=== PATIENT | male | born 1980 | race Caucasian/White ===

== ENCOUNTER 2019-03-14 10:10 | Emergency (ER) | payer SELFPAY ==
[2019-03-14] MEDS ORDERED: ASPIRIN 81 MG TABLET, CHEWABLE PO ONE (11:32)
--- NOTE | 2019-03-14 11:33 | ER Document Report ---
ED Medical Screen (RME) - General Chief Complaint: Chest Pain Stated Complaint: CHEST PAIN Time Seen by Provider: 03/14/19 11:29 Primary Care Provider: SAADIA GANT [Primary Care Provider] - Follow up as needed Mode of Arrival: Ambulatory Information source: Patient Notes: This 38-year-old male with no previous history presents emergency department with complaints of sharp chest pain to the center of his chest that started approximately 2 hours ago while he was sitting at his desk. Reports increased pain when he moves. Reports he feels little bit short of breath and lightheaded. Denies nausea denies diaphoresis. No known family history of cardiac disease. I have greeted and performed a rapid initial assessment of this patient. A comprehensive ED assessment and evaluation of the patient, analysis of test results and completion of the medical decision making process will be conducted by additional ED providers. Physical Exam - Vital signs Vitals: Temp Pulse Resp BP Pulse Ox 98.3 F 65 18 176/89 H 96 03/14/19 10:26 03/14/19 10:26 03/14/19 10:26 03/14/19 10:26 03/14/19 10:26 Course - Vital Signs Vital signs: Temp Pulse Resp BP Pulse Ox 98.3 F 65 18 176/89 H 96 03/14/19 10:26 03/14/19 10:26 03/14/19 10:26 03/14/19 10:26 03/14/19 10:26 Doctor's Discharge - Discharge Referrals: SAADIA GANT [Primary Care Provider] - Follow up as needed
[2019-03-14 12:17] LABS: ABSOLUTE BASOPHILS # (AUTO) 0.1 10^3/uL (0.0-0.2); ABSOLUTE EOSINOPHILS # (AUTO) 0.2 10^3/uL (0.0-0.6); ABSOLUTE LYMPHOCYTES (AUTO) 2.2 10^3/uL (0.5-4.7); ABSOLUTE MONOCYTES (AUTO) 0.6 10^3/uL (0.1-1.4); MEAN CORPUSCULAR HGB CONC 33.7 g/dL (32.0-36.0); TOTAL CELLS COUNTED % (AUTO) 100 %
[2019-03-14 12:27] LABS: ABSOLUTE NEUT (AUTO) 4.6 10^3/uL (1.7-8.2); BASOPHILS % (AUTO) 0.7 % (0-2); EOSINOPHILS % (AUTO) 2.6 % (0-6); HEMATOCRIT 47.4 % (37.9-51.0); LYMPHOCYTES % (AUTO) 28.1 % (13-45); MEAN CORPUSCULAR HEMOGLOBIN 31.6 pg (27.0-33.4); MEAN CORPUSCULAR VOLUME 94 fl (80-97); PLATELET COUNT 204 10^3/uL (150-450); RED BLOOD COUNT 5.06 10^6/uL (4.35-5.55); RED CELL DISTRIBUTION WIDTH 14.3 % (11.5-14.0); SEGMENTED NEUTROPHILS % (AUTO) 60.6 % (42-78); WHITE BLOOD COUNT 7.7 10^3/uL (4.0-10.5)
[2019-03-14 12:32] LABS: ALBUMIN 4.3 g/dL (3.5-5.0); ALKALINE PHOSPHATASE 75 U/L (38-126); ANION GAP 12 (5-19); ASPARTATE AMINO TRANSFERASE 27 U/L (17-59); BILIRUBIN,DIRECT 0.2 mg/dL (0.0-0.4); BILIRUBIN,TOTAL 0.4 mg/dL (0.2-1.3); BLOOD UREA NITROGEN 12 mg/dL (7-20); CALCIUM 9.6 mg/dL (8.4-10.2); CARBON DIOXIDE 23 mmol/L (22-30); CHLORIDE 108 mmol/L (98-107); CREATINE KINASE 130 U/L (55-170); GLUCOSE 95 mg/dL (75-110); POTASSIUM 4.4 mmol/L (3.6-5.0); TOTAL PROTEIN 7.3 g/dL (6.3-8.2)
--- NOTE | 2019-03-14 12:47 | RADIOLOGY REPORT (SQ) ---
EXAM DESCRIPTION: CHEST 2 VIEWS COMPLETED DATE/TIME: 03/14/2019 12:36 pm REASON FOR STUDY: cp COMPARISON: None. EXAM PARAMETERS: NUMBER OF VIEWS: two views TECHNIQUE: Digital Frontal and Lateral radiographic views of the chest acquired. RADIATION DOSE: NA LIMITATIONS: none FINDINGS: LUNGS AND PLEURA: Mild ill-defined right basilar opacity seen best on the lateral project ion. No pleural effusion or pneumothorax. MEDIASTINUM AND HILAR STRUCTURES: No masses or contour abnormalities. HEART AND VASCULAR STRUCTURES: Heart normal size. No evidence for failure. BONES: No acute findings. HARDWARE: None in the chest. OTHER: No other significant finding. IMPRESSION: Mild ill-defined right basilar opacities, possibly pneumonia. TECHNICAL DOCUMENTATION: JOB ID: [id number] [employer]domain- All Rights Reserved Reading location - IP/workstation name: [email or web address]
[2019-03-14] MEDS ORDERED: ASPIRIN 81 MG TABLET, CHEWABLE ONE (14:04)
[2019-03-14 15:25] VITALS: BP 135/84
--- NOTE | 2019-03-14 16:22 | EKG REPORT ---
SEVERITY:- NORMAL ECG - SINUS RHYTHM : Confirmed by: Johana Elkins MD 14-Mar-2019 16:21:29
--- NOTE | 2019-03-14 16:49 | ER Document Report ---
ED Cardiac - General Chief Complaint: Chest Pain Stated Complaint: CHEST PAIN Time Seen by Provider: 03/14/19 11:29 Primary Care Provider: SAADIA GANT [NO LOCAL MD] - Follow up as needed Mode of Arrival: Ambulatory Notes: 38-year-old male presents for sharp substernal pain that started while he was at work that lasted approximately 3 hours. Patient had associated dyspnea, lightheadedness, numbness to fingertips, and generalized weakness. Patient states moving his arms made the pain worse and rest made it better. Patient is currently symptom-free. Patient's only risk factor is smoking. Patient denies any history of hypertension, hyperlipidemia, diabetes. Patient denies any family history of cardiac disease. Patient was given aspirin 324 mg in triage. TRAVEL OUTSIDE OF THE [place] IN LAST 30 DAYS: No - Related Data Allergies/Adverse Reactions: No Known Allergies Allergy (Verified 03/14/19 14:14) Past Medical History - General Information source: Patient - Social History Smoking Status: Current Every Day Smoker Chew tobacco use (# tins/day): No Frequency of alcohol use: None Drug Abuse: None Family History: None Patient has suicidal ideation: No Patient has homicidal ideation: No Review of Systems - Review of Systems Notes: Constitutional: Negative for fever. HENT: Negative for sore throat. Eyes: Negative for visual changes. Cardiovascular: Positive for chest pain. Respiratory: Positive for shortness of breath. Gastrointestinal: Negative for abdominal pain, vomiting or diarrhea. Genitourinary: Negative for dysuria. Musculoskeletal: Negative for back pain. Skin: Negative for rash. Neurological: Positive for generalized weakness. Negative for headaches, weakness or numbness. 10 point ROS negative except as marked above and in HPI. Physical Exam - Vital signs Vitals: Temp Pulse Resp BP Pulse Ox 98.3 F 65 18 176/89 H 96 03/14/19 10:26 03/14/19 10:26 03/14/19 10:26 03/14/19 10:26 03/14/19 10:26 - Notes Notes: GENERAL: Well-appearing, well-nourished and in no acute distress. HEAD: Atraumatic, normocephalic. EYES: Extraocular movements intact, sclera anicteric, conjunctiva are normal. NECK: Normal range of motion, supple without lymphadenopathy or JVD. LUNGS: Breath sounds clear to auscultation bilaterally and equal. No wheezes rales or rhonchi. HEART: Regular rate and rhythm without murmurs, rubs or gallops. EXTREMITIES: Normal range of motion, no pitting or edema. No clubbing or cyanosis. NEUROLOGICAL: Cranial nerves II through XII grossly intact. Normal speech, normal gait. PSYCH: Normal mood, normal affect. SKIN: Warm, Dry, normal turgor, no rashes or lesions noted. Course - Re-evaluation Re-evalutation: 03/14/19 Presentation of chest pain in an otherwise well appearing patient. Low clinical suspicion for ACS given clinical history, exam, EKG without ST elevations or depressions, and negative initial troponin. HEART score 1. PE also seems unlikely given clinical history, absence of tachycardia or dyspnea. Patient is PERC criteria negative. CXR without evidence of pneumothorax or pneumonia. No widened mediastinum. Aortic dissection also seems unlikely given history, symmetric pulses, CXR, and vitals. HEART Score:1 Chest pain in a patient without evidence of cardiac or other serious etiology on workup today. I discussed with patient that, based on their age, risk factors and emergency department testing today, the likelihood that their symptoms are related to a heart attack is very low (estimated risk of heart attack or over the next 30 days of less than 1%). The patient demonstrates decision making capacity and has verbalized an understanding of these risks to me. Based on this, the patient has chosen to follow-up as an outpatient. Usual chest pain return precautions reviewed. The patient states understanding and agreement with this plan. - Vital Signs Vital signs: Temp Pulse Resp BP Pulse Ox 98.3 F 65 10 L 135/84 H 97 03/14/19 10:26 03/14/19 10:26 03/14/19 15:00 03/14/19 15:01 03/14/19 15:01 - Laboratory Result Diagrams: 03/14/19 11:57 03/14/19 11:57 Laboratory results interpreted by me: 03/14/19 03/14/19 11:57 11:57 RDW 14.3 H Chloride 108 H Discharge - Discharge Clinical Impression: Chest pain, unspecified Qualifiers: Chest pain type: unspecified Qualified Code(s): R07.9 - Chest pain, unspecified Condition: Stable Disposition: HOME, SELF-CARE Instructions: Chest Pain of Unclear Cause ([facility]) Additional Instructions: You were seen today for chest pain. The exact cause of your pain is unclear. However, based on your cardiac enzyme testing, chest x-ray, and EKG it does not appear that it is from an immediately life-threatening cause at this time. Although your testing here is normal is critical that you follow-up with your primary care physician for continued evaluation of this chest pain and possible stress testing. I recommended you see your physician within the next 24-48 hours to be evaluated for consideration of a stress test. Please return to emergency department immediately if you have worsening of your chest pain, shortness of breath, vomiting, become unable to exert yourself due to pain or difficulty breathing, you pass out, or have any pain that radiates into your arms, jaw, or back. Please also return if you have any additional symptoms that are concerning to you. Forms: Return to Work Referrals: SAADIA GANT [NO LOCAL MD] - Follow up as needed CAMRON DURAND MD [COMMUNITY BASED STAFF] - Follow up in 3-5 days YSABEL OHARA MD [ACTIVE STAFF] - Follow up in 3-5 days [facility] [Provider Group] - Follow up in 3-5 days
== END 2019-03-14 17:05 | disposition home or self-care (01) ==
LOC: ER 10:10
DX: R07.9 Chest pain, unspecified (principal); R06.00 Dyspnea, unspecified; R20.0 Anesthesia of skin; F17.200 Nicotine dependence, unspecified, uncomplicated
CPT/HCPCS: 36415; 71046; 80053; 82550; 84484; 85025; 93005; 93010; 99285